=== PATIENT | male | born 1955 | race Caucasian/White ===

== ENCOUNTER 2018-08-17 07:04 | Emergency (ER) | payer OTHER ==
[~2018-08-17] VITALS: Ht 172.7 cm; Wt 59.0 kg
[~2018-08-17 07:04] MED LIST: AMITRIPTYLINE H50 M2 PO; OPANA ER10 M1 PO; OXYCODONE HCL15 MG PO; VICODIN 5-5001 EACH
== END 2018-08-17 07:37 | disposition home or self-care (01) ==
LOC: ER 07:04
DX: M79.642 Pain in left hand (principal); M06.9 Rheumatoid arthritis, unspecified